=== PATIENT | male | born 1985 | race Caucasian/White ===

== ENCOUNTER 2017-02-23 07:00 | Emergency (ER) | payer SELFPAY ==
[~2017-02-23] VITALS: Ht 182.9 cm; Wt 89.0 kg
[2017-02-23 07:11] VITALS: TEMP 36.7; Ht 182.9 cm; Wt 89.0 kg
[2017-02-23] MEDS ORDERED: DIPHTHERIA/TETANUS/PERTUSSIS 0.5 ML SYR/VIAL IM. ONE (07:30)
--- NOTE | 2017-02-23 07:39 | EMERGENCY ROOM VISIT NOTE ---
ED Visit Note First contact with patient: 07:16 CHIEF COMPLAINT: Left foot laceration HISTORY OF PRESENT ILLNESS: This 31-year-old male presents the ER with chief complaint of a laceration on the bottom of his left foot. The patient states 8 days ago [place] was [place] jumped off his boat and cut the bottom of his left foot on a metal freddy. The patient has been washing it out with peroxide and apply antibiotic ointment. He also tried new skin. 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 He denies any redness or fever or pus he drainage. The patient's tetanus status is not up-to-date. REVIEW OF SYSTEMS: 6 system review was performed and was negative unless stated otherwise in history of present illness.. PMH: The patient is healthy; there is no significant medical or surgical history. SOCIAL HISTORY: Patient lives with his family. The patient admits to tobacco use but denies any alcohol use. PHYSICAL EXAM: Vital Signs: Were reviewed. Reviewed Nurse's notes. GENERAL: 31 -year-old white male appears in no acute distress. MENTAL Status: Alert and oriented 3. LEFT FOOT: There is a 6 cm long healing laceration on the plantar aspect of the foot. The wound is scabbed over at this time. There is no purulent drainage. There is no surrounding erythema. It is slightly tender to palpation around the wound. The patient is able flex and extend his toes without difficulty. EMERGENCY DEPARTMENT COURSE: The patient was evaluated. Adacel was given. The patient was informed that in the future he needs to come in within 8 hours for suture repair of a wound. Patient verbalized understanding. The patient was given a work note for 5 days. Patient was discharged home in stable condition. DIAGNOSIS: 6 cm healing left thumb laceration DISCHARGE INSTRUCTIONS & TREATMENT: Keep wound as dry as possible. Off work for 5 days. Any signs of infection, follow-up with your family doctor. Allergies Coded Allergies: BEE STING (Unverified Allergy, Mild, 08/07/16) Vital Signs Date Time Temp Pulse Resp B/P (MAP) Pulse Ox O2 Delivery O2 Flow Rate FiO2 02/23/17 07:11 36.7 88 18 117/69 97 Room Air Departure Information Referrals No Doctor, Assigned (PCP) Patient Instructions Counts Include 234 B[facility] At [facility]
[2017-02-23 07:49] VITALS: BP 132/66; PULSE 69; O2SAT 97
--- NOTE | 2017-02-25 12:24 | EDITING REQUIRED CODING QUERY ---
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 Please assist us with the question(s) below: Coding Question(s): Pt has laceration to bottom of left foot. Final Impression lists Laceration to left thumb. Please clarify. Physician's Response(s): Impression: Lt foot laceration Thank you Leanne Mae Principal Diagnosis: "_that condition established after study, to be chiefly responsible for occasioning the admission of the patient to the hospital for care." Co-Existing Principal Diagnosis: "_when two or more diagnoses equally meet the criteria for principal diagnosis as determined by the circumstances of admission, diagnostic work up, and/or therapy provided, and the Alphabetic Index, Tabular List, or another coding guideline does not provide sequencing direction, any one of the diagnoses may be sequenced first." "When the physician has documented what appears to be a current diagnosis in the body of the record, but has not included the diagnosis in the final diagnostic statement, the physician should be asked whether the diagnosis should be added." (Source Coding [facility] 2 QTR90. p3-4)
== END 2017-02-23 07:50 | disposition home or self-care (01) ==
LOC: C.EDB 07:00 → C.EDA 07:50
DX: S91.312A Laceration without foreign body, left foot, initial encounter (principal); W45.8XXA Other foreign body or object entering through skin, initial encounter; F17.200 Nicotine dependence, unspecified, uncomplicated; Z23 Encounter for immunization

== ENCOUNTER 2017-05-07 10:59 | Emergency (ER) | payer SELFPAY ==
[~2017-05-07] VITALS: Ht 182.9 cm; Wt 94.8 kg
[2017-05-07 11:04] VITALS: TEMP 36.8; Ht 182.9 cm; Wt 94.8 kg
[2017-05-07] MEDS ORDERED: KETOROLAC TROMETHAMINE 60 MG/2 ML VIAL IM STA (11:39)
[2017-05-07] MEDS ORDERED: CYCLOBENZAPRINE HCL 5 MG TAB PO STA (11:39)
--- NOTE | 2017-05-07 12:16 | DIAGNOSTIC IMAGING REPORT ---
L-SPINE MIN 4 VIEWS ROUTINE HISTORY: Pain low back pain COMPARISON: 01/27/2015 FINDINGS: There is no fracture. No subluxation. Mild degenerative disc change L5-S1. IMPRESSION: No fracture or subluxation within the lumbar spine. Mild degenerative disc change L5-S1. No change from the prior study. Electronically signed by: Naeem Borja M.D. 05/07/2017 12:15 PM Dictated Date/Time: 05/07/2017 12:14 PM
[2017-05-07] MEDS ORDERED: CYCL10TA6 PO (12:53)
[2017-05-07] MEDS ORDERED: METH4PAK PO (12:53)
--- NOTE | 2017-05-07 12:54 | EMERGENCY ROOM VISIT NOTE ---
ED Visit Note First contact with patient: 11:20 CHIEF COMPLAINT: Low back pain HISTORY OF PRESENT ILLNESS: This 31-year-old male patient presents to the emergency department via POV, from work, complaining of pain in the low back which began approximately 2 hours prior to arrival. The patient states he was attempting to lift a 30-40 pound rock, and "turned wrong" and states he "pulled my back out". The patient states he immediately began experiencing severe pain in the lower part of his back, radiating from midline to the right. The patient states he does have a chronic history of low back pain, but normally has been as on the left. The pain is constant, but significantly worse with movement. The patient is most comfortable sitting, leaning towards the left. The patient notes the pain as "jamming" and a 7/10 at rest, 10/10 with movement. The patient has taken nothing for relief of the pain. The patient denies any loss of control of their bowel or bladder functions. There has been no leg numbness or weakness, and no change in sensation. No nausea or vomiting or abdominal pain. No chest pain or shortness of breath. The patient has history of similar back injuries. No dysuria or increased urinary frequency. REVIEW OF SYSTEMS: A 10 system review of systems was performed with positives and pertinent negatives listed in the history of present illness. All other systems were reviewed and are negative. ALLERGIES: Bee stings MEDICATIONS: None PMH: Chronic low back pain SOCIAL HISTORY: The patient lives locally alone. She denies drug, alcohol, tobacco use. He does admit to tobacco use. PHYSICAL EXAM: VITALS: Vitals are noted on the nurse's note and reviewed by myself. Vital signs stable. GENERAL: This is a 31-year-old male, in no acute distress, nondiaphoretic, well- developed well-nourished. SKIN: The skin was without rashes, erythema, edema, or bruising. Capillary refill less than 2 seconds. NECK: Supple without nuchal rigidity. No cervical spine tenderness. No paraspinous muscle tenderness. HEART: Regular rate and rhythm without murmurs gallops or rubs. LUNGS: Clear to auscultation bilaterally without wheezes, rales or rhonchi. ABDOMEN: Positive bowel sounds x 4. Normal tympanic percussion. Soft, nontender, without masses or organomegaly. Masters sign negative. MUSCULOSKELETAL: No muscle atrophy, erythema, or edema noted of the back. There is mild tenderness over the lumbar spinous processes in the lower lumbar/ upper sacral region. There is severe tenderness over the paraspinous muscles on the right. There is noo tenderness over the thoracic spine or paraspinous muscles. There are muscle spasms present. The patient is slow to move around with maximum tenderness with standing from a sitting position. Negative straight leg raise test bilaterally. NEURO: Patient was alert and oriented to person place and time. Normal sensation to light and sharp touch. Deep tendon reflexes 2+ in the lower extremities. Dorsalis pedis pulse 2+ bilaterally. Strength 5/5 and equal in the bilateral lower extremities. RADIOLOGY: X-Ray Lumbar spine: FINDINGS: There is no fracture. No subluxation. Mild degenerative disc change L5-S1. IMPRESSION: No fracture or subluxation within the lumbar spine. EMERGENCY DEPARTMENT COURSE: She was seen and evaluated as above. He was given 60 mg Toradol IM and 5 mg cyclobenzaprine by mouth. The patient did report mild improvement in his symptoms, and was able to more comfortably move around the room. An x-ray was performed which showed no acute fracture, dislocation, subluxation. I discussed proper discharge treatment with the patient, and he was discharged home in good condition. DIFFERENTIAL DIAGNOSIS: Lumbar strain, fracture, contusion, muscle spasms, sciatica, malignancy, and others DIAGNOSIS: Lumbar strain DISCHARGE INSTRUCTIONS AND TREATMENT: You have been treated in the Emergency Department for Back Pain. You have been prescribed a Medrol Dosepak. This is a steroid which will help decrease your inflammation, redness, and itch. Take the medicine as prescribed. Take the ENTIRE 6 day course of the steroids. You have been prescribed Flexeril (cyclobenzaprine) 1 tab orally, up to three times per day. Do NOT exceed 30 mg (3 tabs) per day. Take your first dose at bedtime as it can make you drowsy. Always take all medications as prescribed. For pain control, you can use the following cdob-ryk-ewkgttz medicines (if >12 yo): Ibuprofen(Motrin, Advil) may be used for fever or pain. Use 600mg every six hours as needed. Take with food. Avoid using more than 2400mg in a 24 hour period. Do not use 2400mg per day for more than three consecutive days without physician direction. Prolonged inappropriate use can lead to stomach upset or ulcers. Do not take this medication while on steroids (Medrol) (AND/OR) Acetaminophen(Tylenol) may be used for fever or pain. Use 1000mg every six hours as needed. Avoid using more than 3000mg in a 24 hour period. If this is an acute injury, ice can be applied to the area of pain for the first 3 days to help decrease pain and inflammation. After the first 3 days, a heating pad can be used over the area for continued soothing relief. You should schedule a follow-up appointment in 2-3 days with your Primary Care Provider for further evaluation and treatment of your back pain. Return to the Emergency Department if your current symptoms worsen despite treatment course outlined above, or if you develop any of the following symptoms : intractable pain despite aforementioned treatment course, loss of control of your bowel or bladder, numbness or tingling in your groin, or development of a fever. Current/Historical Medications Scheduled Methylprednisolone (Medrol Dosepak), 0 PO DAILY Scheduled PRN Cyclobenzaprine Hcl (Flexeril), 10 MG PO TID PRN for Muscle Spasms Allergies Coded Allergies: BEE STING (Unverified Allergy, Mild, 08/07/16) Vital Signs Date Time Temp Pulse Resp B/P (MAP) Pulse Ox O2 Delivery O2 Flow Rate FiO2 05/07/17 13:03 68 18 118/67 97 05/07/17 12:53 68 118/67 97 Room Air 05/07/17 11:04 36.8 81 18 119/74 96 Room Air Medications Administered Medications (Trade) Dose Ordered Sig/George Route Start Time Stop Time Status Last Admin Dose Admin Ketorolac Tromethamine (Toradol Inj) 60 mg NOW STAT IM 05/07/17 11:39 05/07/17 11:42 DC 05/07/17 11:48 60 MG Cyclobenzaprine HCl (Flexeril Tab) 5 mg NOW STAT PO 05/07/17 11:39 05/07/17 11:42 DC 05/07/17 11:48 5 MG Departure Information Impression Primary Impression: Low back pain Dispostion Home / Self-Care Condition GOOD Prescriptions Methylprednisolone (MEDROL DOSEPAK) 4 Mg Chivo 0 PO DAILY, #1 PKT Prov: Alycia Lucero, PAJose RobertoC 05/07/17 Cyclobenzaprine Hcl (FLEXERIL) 10 Mg Tab 10 MG PO TID Y for Muscle Spasms, #12 TAB Prov: Alycia Lucero PA-C 05/07/17 Referrals No Doctor, Assigned (PCP) Patient Instructions ED Sprain Strain Lumbar, My [facility] Additional Instructions You have been treated in the Emergency Department for Back Pain. You have been prescribed a Medrol Dosepak. This is a steroid which will help decrease your inflammation, redness, and itch. Take the medicine as prescribed. Take the ENTIRE 6 day course of the steroids. You have been prescribed Flexeril (cyclobenzaprine) 1 tab orally, up to three times per day. Do NOT exceed 30 mg (3 tabs) per day. Take your first dose at bedtime as it can make you drowsy. Always take all medications as prescribed. For pain control, you can use the following wanu-nzn-pfcfmqd medicines (if >12 yo): Ibuprofen(Motrin, Advil) may be used for fever or pain. Use 600mg every six hours as needed. Take with food. Avoid using more than 2400mg in a 24 hour period. Do not use 2400mg per day for more than three consecutive days without physician direction. Prolonged inappropriate use can lead to stomach upset or ulcers. Do not take this medication while on steroids (Medrol) (AND/OR) Acetaminophen(Tylenol) may be used for fever or pain. Use 1000mg every six hours as needed. Avoid using more than 3000mg in a 24 hour period. If this is an acute injury, ice can be applied to the area of pain for the first 3 days to help decrease pain and inflammation. After the first 3 days, a heating pad can be used over the area for continued soothing relief. You should schedule a follow-up appointment in 2-3 days with your Primary Care Provider for further evaluation and treatment of your back pain. Return to the Emergency Department if your current symptoms worsen despite treatment course outlined above, or if you develop any of the following symptoms : intractable pain despite aforementioned treatment course, loss of control of your bowel or bladder, numbness or tingling in your groin, or development of a fever. Work Instructions Return To Work: 2 days Problem Qualifiers Primary Impression: Low back pain Chronicity: acute Back pain laterality: right Sciatica presence: without sciatica Qualified Codes: M54.5 - Low back pain
[2017-05-07 13:03] VITALS: BP 118/67; PULSE 68; O2SAT 97
== END 2017-05-07 13:03 | disposition home or self-care (01) ==
LOC: C.EDB 11:03 → C.EDD 13:03
DX: S39.012A Strain of muscle, fascia and tendon of lower back, initial encounter (principal); X50.0XXA Overexertion from strenuous movement or load, initial encounter; Y99.0 Civilian activity done for income or pay; Y92.89 Other specified places as the place of occurrence of the external cause; G89.29 Other chronic pain; Z72.0 Tobacco use

== ENCOUNTER 2017-09-15 06:20 | Emergency (ER) | payer SELFPAY ==
[~2017-09-15] VITALS: Ht 182.9 cm; Wt 92.9 kg
[2017-09-15 06:22] VITALS: TEMP 36.8; Ht 182.9 cm; Wt 92.9 kg
[2017-09-15] MEDS ORDERED: SUCRALFATE 1 GM TAB PO STA (06:39)
[2017-09-15] MEDS ORDERED: GI COCKTAIL PO STA (06:39)
[2017-09-15] MEDS ORDERED: FAMOTIDINE 20 MG TAB PO STA (06:39)
--- NOTE | 2017-09-15 06:53 | EMERGENCY ROOM VISIT NOTE ---
History Report prepared by Lore: Abiodun Ritchie Under the Supervision of: Dr. Fabrice Davis M.D. First contact with patient: 06:33 Chief Complaint: ABDOMINAL PAIN Stated Complaint: STOMACH PAIN History of Present Illness The patient is a 31 year old male who presents to the Emergency Room with complaints of worsening diffuse abdominal pain that began 2 days ago. He rates his pain an 8/10 in severity. He states that a couple weeks ago, he began having episodes of diarrhea. However, this ceased a couple of days ago leading up to his abdominal pain. He is currently denying any fevers, chills, chest pain , shortness of breath, nausea, vomiting, diarrhea, melena, or hematochezia. He describes his abdominal pain as a tightness. He also notes that his abdomen feels bloated. This has never happened to him before. He denies any previous abdominal surgeries and still has all of his organs. Source of History: patient Onset: two days ago Position: abdomen (diffuse) Symptom Intensity: 8/10 Quality: other (Tightness) Timing: worsening Associated Symptoms: No fevers, No chills, No chest pain, No SOB, No nausea , No vomiting, No melena, No hematochezia, No diarrhea Review of Systems See HPI for pertinent positives & negatives. A total of 10 systems reviewed and were otherwise negative. Past Medical & Surgical No past abdominal surgeries Family History Patient reports no known family medical history. Social History Smoking Status: Current Every Day Smoker Drug Use: none Marital Status: Housing Status: lives with family Current/Historical Medications Scheduled Dicyclomine Hcl (Bentyl), 1 CAP PO TID Allergies Coded Allergies: BEE STING (Unverified Allergy, Mild, 09/15/17) Physical Exam Vital Signs Date Time Temp Pulse Resp B/P (MAP) Pulse Ox O2 Delivery O2 Flow Rate FiO2 09/15/17 08:05 76 16 132/64 99 09/15/17 06:22 36.8 87 18 143/93 96 Room Air Physical Exam GENERAL: Patient is a healthy-appearing well-nourished male HEAD: Normocephalic atraumatic EYES: Ocular movements intact pupils equal and react to light OROPHARYNX mucous membranes are moist no exudates present no erythema or edema present NECK: Supple no nuchal rigidity CHEST: Good equal expansion LUNGS: Clear and equal to auscultation CARDIAC: Normal S1 and S2 ABDOMEN: Soft nontender no guarding BACK: No CVA tenderness EXTREMITIES: No pain upon palpation normal muscle strength in all groups no clubbing cyanosis or edema NEURO: Patient is following commands and answering questions appropriately. Alert and oriented x3 Cranial Nerves 2-12 grossly intact Medical Decision & Procedures ER Provider Diagnostic Interpretation: Radiology results as stated below per my review and radiologist interpretation: CHEST AND ABDOMEN 2 VIEWS HISTORY: Generalized abdominal pain. COMPARISON: None. FINDINGS: The lungs are clear. The cardiomediastinal silhouette is within normal limits. There is no pneumoperitoneum or pneumatosis. The bowel gas pattern is unremarkable. No evidence for bowel obstruction. No pathologic calcifications. IMPRESSION: No acute cardiopulmonary process. No evidence for bowel obstruction. Electronically signed by: Kendrick Ventura M.D. 09/15/2017 7:49 AM Dictated Date/Time: 09/15/2017 7:48 AM Laboratory Results 09/15/17 06:58 Red Blood Count 4.74, Mean Corpuscular Volume 92.8, Mean Corpuscular Hemoglobin 33.3, Mean Corpuscular Hemoglobin Concent 35.9, Mean Platelet Volume 9.8 09/15/17 06:58 Test 09/15/17 06:58 White Blood Count 6.66 K/uL (4.8-10.8) Red Blood Count 4.74 M/uL (4.7-6.1) Hemoglobin 15.8 g/dL (14.0-18.0) Hematocrit 44.0 % (42-52) Mean Corpuscular Volume 92.8 fL (80-100) Mean Corpuscular Hemoglobin 33.3 pg (25-34) Mean Corpuscular Hemoglobin Concent 35.9 g/dl (32-36) Platelet Count 144 K/uL (130-400) Mean Platelet Volume 9.8 fL (7.4-10.4) RDW Standard Deviation 47.1 fL (36.4-46.3) RDW Coefficient of Variation 13.8 % (11.5-14.5) Neutrophils % (Manual) 45.7 % Lymphocytes % (Manual) 11.2 % Variant Lymphocytes % (manual) 33.6 % Monocytes % (Manual) 4.3 % Eosinophils % (Manual) 2.6 % Basophils % (Manual) 2.6 % (0-2) Neutrophils # (Manual) 3.04 K/uL (1.4-6.5) Total Absolute Neutrophils 3.04 K/uL (1.4-6.5) Lymphocytes # (Manual) 0.75 K/uL (1.2-3.4) Absolute Variant Lymphocytes 2.24 K/uL Total Absolute Lymphocytes 2.98 K/uL (1.2-3.4) Monocytes # (Manual) 0.29 K/uL (0.11-0.59) Eosinophils # (Manual) 0.17 K/uL (0-0.5) Basophils # (Manual) 0.17 K/uL (0-0.2) Toxic Granulation 1+ Toxic Vacuolation 1+ Anion Gap 9.0 mmol/L (3-11) Est Creatinine Clear Calc Drug Dose 146.4 ml/min Estimated GFR () 138.2 Estimated GFR (Non- 119.3 BUN/Creatinine Ratio 6.3 (10-20) Calcium Level 8.7 mg/dl (8.5-10.1) Total Bilirubin 0.4 mg/dl (0.2-1) Direct Bilirubin < 0.1 mg/dl (0-0.2) Aspartate Amino Transf (AST/SGOT) 30 U/L (15-37) Alanine Aminotransferase (ALT/SGPT) 37 U/L (12-78) Alkaline Phosphatase 60 U/L (45-117) Total Protein 7.4 gm/dl (6.4-8.2) Albumin 3.5 gm/dl (3.4-5.0) Lipase 76 U/L (73-393) Labs reviewed by ED physician. Medications Administered Medications (Trade) Dose Ordered Sig/George Route Start Time Stop Time Status Last Admin Dose Admin Famotidine (Pepcid Tab) 20 mg NOW STAT PO 09/15/17 06:39 09/15/17 06:41 DC 09/15/17 07:23 20 MG Sucralfate (Carafate Tab) 1 gm NOW STAT PO 09/15/17 06:39 09/15/17 06:41 DC 09/15/17 07:22 1 GM Al Hydroxide/Mg Hydroxide (Maalox Susp) 30 ml STK-MED ONCE .ROUTE 09/15/17 07:14 09/15/17 07:15 DC 09/15/17 07:23 30 ML Lidocaine HCl (Viscous Lidocaine 2% Soln) 20 ml STK-MED ONCE .ROUTE 09/15/17 07:14 09/15/17 07:15 DC 09/15/17 07:23 20 ML ED Course 0633: Past medical records reviewed. The patient was evaluated in room B6. A complete history and physical examination was performed. 0639: Ordered Carafate Tab 1 gm PO, Pepcid Tab 20 mg PO, Gi Cocktail 24 ml PO 0820: Upon reexamination the patient is resting. I discussed results and treatment plan with the patient. He verbalizes agreement and understanding. The patient is ready for discharge. Medical Decision Differential diagnosis: Etiologies such as appendicitis, diverticulitis, PUD, biliary pathology, UTI, pancreatitis, obstruction, mesenteric ischemia, aortic pathology, infections, inflammatory bowel disease, renal colic, as well as others were entertained. This is a 31-year-old male who presents emergency department complaining of abdominal pain. Serial abdominal examinations were performed on the patient in the emergency department and at no time did the patient exhibit a surgical abdomen. In addition the patient has a normal CBC normal renal profile normal liver profile normal lipase. He was given GI cocktail, Pepcid and Carafate. Repeat examination revealed much improvement the patient's symptoms. Using shared medical decision making I felt based on the patient's laboratory work as well as his physical examination and the fact that the patient is afebrile that the patient did not need a CAT scan of the abdomen and pelvis. The patient was also in agreement with this. I stressed the need for follow-up with the patient 's primary care physician and recommended a clear liquid diet for the next 48 hours. In addition the patient was given a prescription for Bentyl. Patient was in agreement with the treatment plan. Medication Reconcilliation Current Medication List: was personally reviewed by me Blood Pressure Screening Patient's blood pressure: Elevated blood pressure Blood pressure disposition: Elevated BP felt to be situational Impression Primary Impression: Abdominal pain Scribe Attestation The scribe's documentation has been prepared under my direction and personally reviewed by me in its entirety. I confirm that the note above accurately reflects all work, treatment, procedures, and medical decision making performed by me. Departure Information Dispostion Home / Self-Care Prescriptions Dicyclomine Hcl (BENTYL) 10 Mg Cap 1 CAP PO TID for 10 Days, #30 CAP Prov: Fabrice Davis MD 09/15/17 Referrals No Doctor, Assigned (PCP) Forms HOME CARE DOCUMENTATION FORM, IMPORTANT VISIT INFORMATION, School Instructions, Work Instructions Patient Instructions Abdominal Pain - [facility], Diet Clear Liquid Dc, My [facility] Additional Instructions Take 5 ml Maalox before every meal and at bedtime Clear liquid diet next 48 hours You have been examined and treated today on an emergency basis only. This is not a substitute for, or an effort to provide, complete comprehensive medical care. It is impossible to recognize and treat all injuries or illnesses in a single emergency department visit. It is therefore important that you follow up closely with your PCP. Call as soon as possible for an appointment. Thank you for your time and consideration. I look forward to speaking with you again soon. Please don't hesitate to call us if you have any questions. Problem Qualifiers Primary Impression: Abdominal pain Abdominal location: generalized Qualified Codes: R10.84 - Generalized abdominal pain
[2017-09-15] MEDS ORDERED: ALUMINUM/MAGNESIUM SUSP 30 ML UDC ONE (07:14)
[2017-09-15] MEDS ORDERED: LIDOCAINE HCL 2% VISC SOLN 20 ML UDC ONE (07:14)
[2017-09-15 07:16] LABS: HEMOGLOBIN 15.8 g/dL (14.0-18.0); MEAN CELL VOLUME 92.8 fL (80-100); MEAN CORPUSCULAR HEMOGLOBIN 33.3 pg (25-34); MEAN CORPUSCULAR HGB CONC 35.9 g/dl (32-36); MEAN PLATELET VOLUME 9.8 fL (7.4-10.4); PLATELET COUNT 144 K/uL (130-400); RED CELL DISTRIBUTION WIDTH CV 13.8 % (11.5-14.5); RED CELL DISTRIBUTION WIDTH SD 47.1 fL (36.4-46.3); WHITE BLOOD COUNT 6.66 K/uL (4.8-10.8)
[2017-09-15 07:34] LABS: ALBUMIN 3.5 gm/dl (3.4-5.0); ALT/SGPT 37 U/L (12-78); BLOOD UREA NITROGEN 5 mg/dl (7-18); CALCIUM 8.7 mg/dl (8.5-10.1); CARBON DIOXIDE 23 mmol/L (21-32); CREATININE 0.81 mg/dl (0.60-1.40); GLUCOSE 109 mg/dl (70-99); LIPASE 76 U/L (73-393); POTASSIUM 3.9 mmol/L (3.5-5.1); SODIUM 138 mmol/L (136-145)
[2017-09-15 07:37] LABS: ALKALINE PHOSPHATASE 60 U/L (45-117); AST/SGOT 30 U/L (15-37); TOTAL PROTEIN 7.4 gm/dl (6.4-8.2)
--- NOTE | 2017-09-15 07:51 | DIAGNOSTIC IMAGING REPORT ---
CHEST AND ABDOMEN 2 VIEWS HISTORY: Generalized abdominal pain. COMPARISON: None. FINDINGS: The lungs are clear. The cardiomediastinal silhouette is within normal limits. There is no pneumoperitoneum or pneumatosis. The bowel gas pattern is unremarkable. No evidence for bowel obstruction. No pathologic calcifications. IMPRESSION: No acute cardiopulmonary process. No evidence for bowel obstruction. Electronically signed by: Kendrick Ventura M.D. 09/15/2017 7:49 AM Dictated Date/Time: 09/15/2017 7:48 AM
[2017-09-15 08:05] VITALS: BP 132/64; PULSE 76; O2SAT 99
[2017-09-15] MEDS ORDERED: DICY10CA55 PO (08:09)
== END 2017-09-15 08:20 | disposition home or self-care (01) ==
LOC: C.EDB 06:21
DX: R10.9 Unspecified abdominal pain (principal); F17.200 Nicotine dependence, unspecified, uncomplicated; Z91.030 Bee allergy status

== ENCOUNTER 2017-12-05 04:04 | Emergency (ER) | payer SELFPAY ==
[~2017-12-05] VITALS: Ht 182.9 cm; Wt 99.1 kg
[~2017-12-05 04:04] MED LIST: DICY10CA55 PO
[2017-12-05 04:09] VITALS: TEMP 36.7; Ht 182.9 cm; Wt 99.1 kg
[2017-12-05] MEDS ORDERED: HALOPERIDOL LACTATE 5 MG/ML 1 ML VIAL ONE (04:24)
[2017-12-05] MEDS ORDERED: LORAZEPAM 2 MG/ML 1 ML VIAL ONE (04:24)
[2017-12-05] MEDS ORDERED: HALOPERIDOL LACTATE 5 MG/ML 1 ML VIAL IM STA (04:25)
[2017-12-05] MEDS ORDERED: LORAZEPAM 2 MG/ML 1 ML VIAL IM STA (04:25)
[2017-12-05 04:46] LABS: HEMATOCRIT 46.2 % (42-52); HEMOGLOBIN 16.9 g/dL (14.0-18.0); MEAN CELL VOLUME 93.1 fL (80-100); MEAN CORPUSCULAR HEMOGLOBIN 34.1 pg (25-34); MEAN CORPUSCULAR HGB CONC 36.6 g/dl (32-36); MEAN PLATELET VOLUME 9.7 fL (7.4-10.4); PLATELET COUNT 195 K/uL (130-400); RED CELL DISTRIBUTION WIDTH CV 12.8 % (11.5-14.5); RED CELL DISTRIBUTION WIDTH SD 43.8 fL (36.4-46.3); WHITE BLOOD COUNT 11.89 K/uL (4.8-10.8)
--- NOTE | 2017-12-05 05:05 | EMERGENCY ROOM VISIT NOTE ---
History Report prepared by Lore: Meeta Nicolas Under the Supervision of: Dr. Sara Pool M.D. 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 The patient was pulled over for a DUI early this am and made suicidal statements to the police officers. They note that the patient reported to police that he was going to jump from the fourth floor to kill himself. The patient stated he wanted to . For this reason the patient was brought to the emergency department for evaluation.. Per nursing staff, the patient reported refusing a DEMARIO. The patient is combative. The patient states that he is "pissed off." 0511: Upon reevaluation of the patient. He is now calm. He states that he got pulled over for a DUI. He notes that he had a divorce eight months ago. 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 He notes that he made previous self-harm statements because he was upset with being arrested for the DUI. He denies any other history of suicidal ideations. He states that he has a previous felony charge and is not in possession of a firearm, though states that he owns a bow and arrow. 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 Review of Systems See HPI for pertinent positives & negatives. A total of 10 systems reviewed and were otherwise negative. Past Medical & Surgical Medical Problems: (1) Abdominal pain (2) Low back pain Family History No pertinent family history Social History Smoking Status: Current Every Day Smoker Alcohol Use: heavy Drug Use: none Marital Status: Housing Status: lives with family Occupation Status: employed Current/Historical Medications Unable to Obtain Active Prescriptions or Reported Meds Allergies Coded Allergies: BEE STING (Unverified Allergy, Mild, 09/15/17) Physical Exam Vital Signs Date Time Temp Pulse Resp B/P (MAP) Pulse Ox O2 Delivery O2 Flow Rate FiO2 12/05/17 06:23 106 16 97 Room Air 12/05/17 04:09 36.7 107 18 148/89 95 Room Air Physical Exam Vital signs reviewed. General: Odor of EtOH in the breath, disheveled 32-year-old male. No signs of trauma. HEENT: Mild scleral injection bilaterally, PERRLA, neck supple, dry mucous membranes. Cardiovascular: Regular rate and rhythm, no extra sounds. Pulmonary: Clear to auscultation bilaterally, normal work of breathing. Abdomen: Soft, nontender, nondistended, positive bowel sounds. Musculoskeletal: Upper and lower extremities atraumatic, no peripheral edema Skin: Warm, dry, no rash. Atraumatic. Neurologic: Patient is agitated, yelling, and held down by security officers. Patient is initially combative. Psychologic : Unable to assess due to alcohol intoxication/agitation/ uncooperative behavior. On my reevaluation approximately 30-45 minutes later, the patient denied suicidal thoughts or homicidal thoughts. Medical Decision & Procedures Laboratory Results 12/05/17 04:36 Red Blood Count 4.96, Mean Corpuscular Volume 93.1, Mean Corpuscular Hemoglobin 34.1, Mean Corpuscular Hemoglobin Concent 36.6, Mean Platelet Volume 9.7 12/05/17 04:36 Test 12/05/17 04:36 White Blood Count 11.89 K/uL (4.8-10.8) Red Blood Count 4.96 M/uL (4.7-6.1) Hemoglobin 16.9 g/dL (14.0-18.0) Hematocrit 46.2 % (42-52) Mean Corpuscular Volume 93.1 fL (80-100) Mean Corpuscular Hemoglobin 34.1 pg (25-34) Mean Corpuscular Hemoglobin Concent 36.6 g/dl (32-36) Platelet Count 195 K/uL (130-400) Mean Platelet Volume 9.7 fL (7.4-10.4) RDW Standard Deviation 43.8 fL (36.4-46.3) RDW Coefficient of Variation 12.8 % (11.5-14.5) Neutrophils % (Manual) 37.7 % Lymphocytes % (Manual) 9.6 % Variant Lymphocytes % (manual) 43.8 % Monocytes % (Manual) 5.3 % Eosinophils % (Manual) 1.8 % Basophils % (Manual) 1.8 % (0-2) Neutrophils # (Manual) 4.48 K/uL (1.4-6.5) Total Absolute Neutrophils 4.48 K/uL (1.4-6.5) Lymphocytes # (Manual) 1.14 K/uL (1.2-3.4) Absolute Variant Lymphocytes 5.21 K/uL Total Absolute Lymphocytes 6.35 K/uL (1.2-3.4) Monocytes # (Manual) 0.63 K/uL (0.11-0.59) Eosinophils # (Manual) 0.21 K/uL (0-0.5) Basophils # (Manual) 0.21 K/uL (0-0.2) Red Blood Cell Morphology Unremarkable Anion Gap 10.0 mmol/L (3-11) Est Creatinine Clear Calc Drug Dose 109.7 ml/min Estimated GFR () 93.8 Estimated GFR (Non- 80.9 BUN/Creatinine Ratio 7.7 (10-20) Calcium Level 8.8 mg/dl (8.5-10.1) Total Bilirubin 0.5 mg/dl (0.2-1) Direct Bilirubin 0.1 mg/dl (0-0.2) Aspartate Amino Transf (AST/SGOT) 26 U/L (15-37) Alanine Aminotransferase (ALT/SGPT) 38 U/L (12-78) Alkaline Phosphatase 66 U/L (45-117) Total Protein 8.7 gm/dl (6.4-8.2) Albumin 4.3 gm/dl (3.4-5.0) Thyroid Stimulating Hormone (TSH) 3.620 uIu/ml (0.300-4.500) Salicylates Level 3.9 mg/dl (2.8-20) Acetaminophen Level < 2 ug/ml (10-30) Ethyl Alcohol mg/dL 167.0 mg/dl (0-3) Laboratory results per my review. Medications Administered Medications (Trade) Dose Ordered Sig/George Route Start Time Stop Time Status Last Admin Dose Admin Lorazepam (Ativan Inj) 2 mg STK-MED ONCE .ROUTE 12/05/17 04:24 12/05/17 04:25 DC 12/05/17 04:28 2 MG Haloperidol Lactate (Haldol Inj) 10 mg STK-MED ONCE .ROUTE 12/05/17 04:24 12/05/17 04:25 DC 12/05/17 04:28 10 MG ED Course 0421: Past medical records reviewed. The patient was evaluated in room A5. A complete history and physical examination was performed. 0424: Ordered Haldol 10 mg IM and Ativan 2 mg IM 0511: I reassessed the patient at this time. The patient is now calm. Please see HPI note. 0635: I reassessed the patient at this time. He is resting. 0730: The patient was signed out to Dr. Aguilar at shift change. Medical Decision Differential diagnosis: Etiologies such as mood disorder, infection, hypoglycemia, electrolyte abnormalities, cardiac sources, intracerebral event, toxicologic, neurologic, as well as others were entertained. This patient was evaluated and appeared to be in significant mental distress. The patient was pulled over for a DUI early this morning. After being apprehended by the police officers, he made statements regarding his desire to . The patient apparently has a history of legal troubles, he was recently . Patient stated he made these comments because of the stress he was under at the time. The patient did become very agitated in the emergency department and required security restraint. He received 10 mg of IM Haldol and 2 mg of IM Ativan for combative behavior and aggressive actions. The patient was temporarily restrained in four-point sarah. He was eventually able to converse in a well-meaning fashion. The restraints were removed. The patient was able to get himself undressed. He will be medically cleared at approximately 730 this morning for mental health evaluation. A 302 warrant is on the chart pending disposition. The patient is aware of the plan. Case is being signed out to Dr. Aguilar at the change of shift, pending disposition. Medication Reconcilliation Current Medication List: was personally reviewed by me Blood Pressure Screening Patient's blood pressure: Elevated blood pressure Blood pressure disposition: Elevated BP felt to be situational Impression Primary Impression: Alcohol intoxication Additional Impression: Suicidal ideation Critical Care I have personally spent greater than 35 minutes of critical care time in the direct management of this patient. This includes bedside care, interpretation of diagnostic studies, and testing, discussion with consultants, patient, and family members, and other required patient management activities. This 35 minutes is in excess of all separately billable procedures. Scribe Attestation The scribe's documentation has been prepared under my direction and personally reviewed by me in its entirety. I confirm that the note above accurately reflects all work, treatment, procedures, and medical decision making performed by me. Departure Information Dispostion Still a Patient Prescriptions Unable to Obtain Active Prescriptions or Reported Meds Referrals No Doctor, Assigned (PCP) Patient Instructions My [facility] Problem Qualifiers
[2017-12-05 05:06] LABS: ALBUMIN 4.3 gm/dl (3.4-5.0); CALCIUM 8.8 mg/dl (8.5-10.1); CREATININE 1.19 mg/dl (0.60-1.40); POTASSIUM 3.6 mmol/L (3.5-5.1)
[2017-12-05 05:16] LABS: TOTAL PROTEIN 8.7 gm/dl (6.4-8.2)
--- NOTE | 2017-12-05 07:26 | EMERGENCY ROOM VISIT NOTE ---
ED Visit Note First contact with patient: 07:25 The patient was taken in sign out from Dr. Sara Pool at the change of shift. Please see that note for details. The patient was pending medical clearance and psychiatric evaluation. Patient's intoxication cleared. He had no suicidal ideation. He states that he likely suggesting secondary to being drunk. He does not want any inpatient care. There is no grounds for involuntary commitment. The police were contacted and they do not want him in custody. The patient felt comfortable with discharge. He is going in the care of his girlfriend. If he worsens in any way he will be back. I gave my usual and customary discussion regarding this issue.
[2017-12-05 10:06] VITALS: BP 137/81; PULSE 101; O2SAT 98
== END 2017-12-05 10:45 | disposition home or self-care (01) ==
LOC: C.EDB 04:05 → C.EDA 10:45
DX: F10.929 Alcohol use, unspecified with intoxication, unspecified (principal); R03.0 Elevated blood-pressure reading, without diagnosis of hypertension; R45.4 Irritability and anger; F17.200 Nicotine dependence, unspecified, uncomplicated; Z91.030 Bee allergy status